=== PATIENT | male | born 1980 | race Caucasian/White ===

== ENCOUNTER → 2021-02-23 | Outpatient (CLI) | payer OTHER ==
[2021-02-23] VITALS (9 sets, daily range): BP systolic 118–139; BP diastolic 77–95
[~2021-02-23] MED LIST: TOPROL XL50 MG PO; XARELTO20 MG PO
[2021-02-23 12:05] LABS: HEMATOCRIT 46.9 % (42.0-52.0); HEMOGLOBIN 16.2 gm/dL (14.0-18.0); MCH 30.4 pg (26.0-34.0); MCHC 34.4 g/dL (28.0-37.0); MCV 88.4 fL (80.0-100.0); MPV 8.2 fl. (7.2-11.1); RBC 5.31 mil/uL (4.50-6.00); RDW-CV 13.2 % (10.5-14.5); WBC 6.7 thou/uL (4.0-11.0)
[2021-02-23 12:09] LABS: CREATININE 1.1 mg/dL (0.6-1.3); POTASSIUM 3.8 mmol/L (3.5-5.1)
[2021-02-23 12:14] LABS: ALBUMIN 3.7 g/dL (3.4-5.0); TOTAL BILIRUBIN 0.9 mg/dL (<0.1-1.0); TOTAL PROTEIN 7.8 g/dL (6.4-8.2)
--- NOTE | 2021-02-25 09:48 | CARD ---
[address] [address] CARDIAC CATH REPORT Name: DENNIS LOTT Room: [facility]#: [id number] Admission: 02/23/21 Attend Phys: Kvng Hedrick MD Discharge: Date of : 84 Report #: [id number] THIS REPORT FOR: cc: Mehul Kyle Vincent R. DO Liston, Michael J. MD [facility] ~ cc: River Nixon MD DATE OF SERVICE: 02/23/2021 CARDIAC PROCEDURE PROCEDURE: Direct current cardioversion. INDICATION: Persistent atrial fibrillation. MEDICATIONS ADMINISTERED: Versed 6 mg and fentanyl 150 mcg. DESCRIPTION OF PROCEDURE: After informed consent was obtained, the patient was brought to the cardiac holding area. The patient received intravenous Versed and fentanyl for conscious sedation. Once the patient was adequately sedated, he was cardioverted from atrial fibrillation to normal sinus rhythm with a single biphasic shock of 300 joules. The patient did require a single dose of Narcan post-cardioversion. His recovery was otherwise unremarkable. IMPRESSION: 1. Persistent atrial fibrillation. 2. Successful direct current cardioversion to normal sinus rhythm. <ELECTRONICALLY SIGNED> By: Kvng Hedrick MD, FACC 02/25/21 [id number] 1959[facility] MD, FACC /nt
== END | disposition home or self-care (01) ==
LOC: M.CL 10:45
PROVIDERS: ATTEND Internal Medicine Cardiovascular Disease
DX: I48.19 Other persistent atrial fibrillation (principal); Z98.890 Other specified postprocedural states; Z79.899 Other long term (current) drug therapy; Z79.01 Long term (current) use of anticoagulants